=== PATIENT | male | born 1985 | race Caucasian/White ===

== ENCOUNTER 2019-08-26 20:29 | Emergency (ER) | payer MEDICAID, SELFPAY ==
[2019-08-26 20:30] VITALS: BP 142/100; PULSE 89; RESP 16; TEMP 37.1; O2SAT 100; BMI 24.4
--- NOTE | 2019-08-26 20:52 | [facility].EDGENADL ---
ED Disposition Clinical Impression: Chronic insomnia Chronic pain Qualifiers: Chronic pain type: chronic pain syndrome Qualified Code(s): G89.4 - Chronic pain syndrome Disposition: Home, Self-Care Condition on Discharge: Good Instructions: DI for Chronic Pain -- Adult, DI for Insomnia Additional Instructions: Follow-up with a primary care physician when you return home. Referrals: Provider,Referral, [Primary Care Provider] - - Critical Care Critical Care Time: No Attestation: On , the high probability of a clinically significant, sudden or life threatening deterioration of the following system(s) required my full and direct attention, intervention and personal management. The time I documented below is in addition to time spent performing reported procedures but includes the following listed in this critical care notation. Medical Decision Making - Medical Records Medical records reviewed: Yes: I reviewed the patient's medical records. - Ollie Inquiry Pt receiving controlled substance: No Ollie was queried for this patient: Yes Reference #:: [id number] Comment: 0 rxs. no recent rxs for ativan. Vital Signs: 08/26/19 20:30 08/26/19 21:27 08/26/19 22:08 Temperature 98.7 F 98.7 F Temperature Source Oral Oral Pulse Rate 74 Pulse Rate [Left Radial] 89 76 Respiratory Rate 16 16 Blood Pressure 123/77 Blood Pressure [Right Arm] 142/100 H 116/68 Blood Pressure Mean [Right Arm] 114 84 Blood Pressure Source Automatic Cuff Blood Pressure Source [Right Arm] Automatic Cuff Automatic Cuff Blood Pressure Position Sitting Blood Pressure Position [Right Arm] Sitting Supine 02 Sat by Pulse Oximetry 100 99 Oxygen Delivery Method Room Air Room Air Room Air - Lab Data Lab results reviewed: Yes: I reviewed the patient's lab results. Lab Results 08/26/19 20:48: WBC 8.9, RBC 5.02, Hgb 15.7, Hct 44.3, MCV 88.2, MCH 31.2, MCHC 35.4, RDW 14.0, Plt Count 268, MPV 6.9 L, Neut % (Auto) 2.3 L, Lymph % (Auto) 38.1, [place] % (Auto) 55.7 H, Eos % (Auto) 2.8, Baso % (Auto) 0.9, Neut # (Auto) 0.2 L*, Lymph # (Auto) 3.4, [place] # (Auto) 4.9 H, Eos # (Auto) 0.3, Baso # (Auto) 0.1, Total Counted 100, Neutrophils % (Manual) 82 H, Band Neutrophils % 2.0, Lymphocytes % (Manual) 14, Monocytes % (Manual) 2, Platelet Estimate Normal, RBC Morphology Normal 08/26/19 20:48: Sodium 142, Potassium 4.1, Chloride 103, Carbon Dioxide 32 H, Anion Gap 11.1, BUN 12, Creatinine 1.00, Estimated Creat Clear 121, Estimated GFR 86, Est GFR ( Amer) 104, Glucose 105 H, Calcium 9.7, Total Bilirubin 0.4, AST 14 L, ALT 23, Alkaline Phosphatase 72, Total Creatine Kinase 115, CK-MB (CK-2) 0.6, CK-MB (CK-2) Rel Index 0.5, Troponin I < 0.01, Total Protein 7.3, Albumin 4.7, Globulin 2.6, Albumin/Globulin Ratio 1.8 08/26/19 20:48: D-Dimer < 100 08/26/19 21:13: Urine Color Yellow, Urine Appearance Clear, Urine pH 6.5, Ur Specific [place] 1.025, Urine Protein Negative, Urine Glucose (UA) Negative, Urine Ketones Negative, Urine Blood Negative, Urine Nitrate Negative, Urine Bilirubin Negative, Urine Urobilinogen 0.2, Ur Leukocyte Esterase Negative, Amorphous Sediment 2+ Result diagrams: 08/26/19 20:48 08/26/19 20:48 Orders (Tests/Meds): ED MEDICATIONS Discontinued Medications Generic Name Dose Route Start Last Admin Trade Name Freq PRN Reason Stop Dose Admin Diphenhydramine HCl 25 mg 08/26/19 21:44 08/26/19 22:08 Benadryl 50mg/1ml Vial IV 08/26/19 21:45 25 mg ONCE ONE Administration Ketorolac Tromethamine 30 mg 08/26/19 21:44 08/26/19 22:08 Toradol 30mg/Ml Vial IV 08/26/19 21:45 30 mg ONCE ONE Administration ORDERS Category Date Time Status Peripheral Smear Review Routine Lab 08/26/19 20:48 Received - ECG Data Tracing #1 EKG interpreted by Gray Dykes MD: Rhythm: sinus Rate: 88 [place]: normal Ectopy: none Conduction: normal ST Segment Changes: none T Wave Changes: none Q Waves: none N
--- NOTE | 2019-08-26 20:53 | ECG_ITS ---
APPROVED REPORT Exam: Resting ECG HR:88 bpm ECG Measurements Heart Rate 88 AXES VT 156 P 39 QRSd 78 QRS 51 QT 346 T 44 QTc 418 <Conclusion> Normal sinus rhythm Normal ECG Electronically signed by : Silviano Cross, 08/31/2019 17:12:55
[2019-08-26 21:03] LABS: Basophils # 0.1 K/mm3 (0-0.2); Eosinophils # 0.3 K/mm3 (0.0-0.4); Eosinophils % 2.8 % (0.1-12.0); Hematocrit 44.3 % (42.0-52.0); Hemoglobin 15.7 g/dL (14.1-18.0); Lymphocytes # 3.4 K/mm3 (0.7-4.5); Lymphocytes % 38.1 % (10-50); Mean Corpuscular HGB Conc 35.4 g/dL (31.8-35.4); Mean Corpuscular Hemoglobin 31.2 pg (27.0-31.2); Mean Corpuscular Volume 88.2 fl (80-94); Mean Platelet Volume 6.9 fl (7.4-10.4); Monocytes # 4.9 K/mm3 (0.1-1.0); Monocytes % 55.7 % (1.7-9.3); Neutrophils # 0.2 K/mm3 (1.8-7.8); Platelet Count 268 K/mm3 (142-424); Red Blood Count 5.02 M/mm3 (4.60-6.20); White Blood Count 8.9 K/mm3 (4.8-10.8)
[2019-08-26 21:04] LABS: Neutrophils % 2.3 % (37.0-80.0)
[2019-08-26 21:05] LABS: Basophils % 0.9 % (0.1-2.0); MANUAL DIFFERENTIAL MANUAL DIFFERENTIAL (MANUAL DIFF)
[2019-08-26 21:15] LABS: Lymphocytes % 14 % (10-50); Monocytes % 2 % (2-9); Neutrophils % 82 % (42-76); Platelet Estimate Normal; RBC Morphology Normal; Total Cells Counted 100
[2019-08-26 21:17] LABS: Appearance,Urine CLEAR (Clear); Bilirubin,Urine Negative (Negative); Blood, Urine Negative (Negative); Color,Urine YELLOW (Yellow); Glucose,Urine (UA) Negative (Negative); Ketones,Urine Negative (Negative); Leukocyte Esterase,Urine Negative (Negative); Microscopic, Urine URINE MICROSCOPIC (MICROSCOPIC); Nitrate,Urine Negative (Negative); PH,Urine 6.5 (5.0-8.5); Protein,Urine Negative (Negative); Specific Gravity, Urine 1.025 (1.005-1.030); Urobilinogen,Urine 0.2 EU/dl (0.2)
[2019-08-26 21:18] LABS: Alanine Aminotransferase 23 U/L (12-78); Albumin Level 4.7 g/dl (3.5-5.0); Albumin/Globulin Ratio 1.8 (1.1-1.8); Alkaline Phosphatase 72 U/L (38-126); Anion Gap 11.1 mEq/L (5-15); Aspartate Amino Transferase 14 U/L (17-59); Bilirubin,Total 0.4 mg/dl (0.2-1.3); Blood Urea Nitrogen 12 mg/dl (9-20); Calcium 9.7 mg/dl (8.4-10.2); Carbon Dioxide 32 mmol/L (22.0-30.0); Chloride 103 mmol/L (98-107); Creatine Kinase 115 U/L (55-170); Creatinine Clearance Estimated 121 mL/min (50-200); Estimated Glomerular Filt Rate 86 ml/min (>60); GFR (African American) 104 ML/MIN (>60); Globulin 2.6 g/dL (1.3-3.2); Glucose 105 mg/dl (74-100); Potassium 4.1 mmoL/L (3.5-5.1); Sodium 142 mmol/L (136-145); Total Protein,Serum 7.3 g/dl (6.3-8.2)
[2019-08-26 21:20] LABS: Amorphous Sediment,Urine 2+ /lpf
[2019-08-26 21:27] VITALS: BP 116/68; PULSE 76; O2SAT 99
[2019-08-26 21:30] LABS: CKMB Relative Index 0.5 U/L (0-4.0); Creatine Kinase MB 0.6 ng/ml (0.0-2.03)
[2019-08-26 21:34] LABS: Troponin I < 0.01 ng/ml (0.00-0.034)
[2019-08-26 21:35] LABS: D-Dimer < 100 ng/mL (0-400)
[2019-08-26 22:08] VITALS: BP 123/77; PULSE 74; RESP 16; TEMP 37.1; O2SAT 100
[2019-08-28 21:09] LABS: Peripheral Smear Review Scanned Result
== END 2019-08-26 22:12 | disposition home or self-care (01) ==
PROVIDERS: Emergency Provider Emergency Medicine
DX: F51.04 Psychophysiologic insomnia (principal); G89.4 Chronic pain syndrome
CPT/HCPCS: 80053; 81001; 82550; 82553; 84484; 85007; 85025; 85378; 93005; 96374; 96375; 99283